=== PATIENT | female | born 1965 | race Asian ===

== ENCOUNTER 2018-06-29 09:00 | Day surgery (SDC) | payer OTHER ==
[2018-06-29] MEDS ORDERED: LIDOCAINE 4% SOLUTION 50 ML BTL (09:49)
[2018-06-29] MEDS ORDERED: MIDAZOLAM 1 MG/ML 2 ML INJ ×2 (11:20)
[2018-06-29] MEDS ORDERED: FENTAnyl 50 MCG/ML VIAL (11:20)
== END 2018-06-29 11:49 | disposition home or self-care (01) ==
LOC: GIL 09:00
DX: K29.50 Unspecified chronic gastritis without bleeding (principal); K44.9 Diaphragmatic hernia without obstruction or gangrene; K22.2 Esophageal obstruction; K64.4 Residual hemorrhoidal skin tags
CPT/HCPCS: 43239; 84703; 88305; 88312